=== PATIENT | male | born 1965 | race Caucasian/White ===

== ENCOUNTER 2017-07-27 09:43 | Emergency (ER) | payer BC ==
[~2017-07-27] VITALS: Ht 175.3 cm; Wt 72.6 kg
[2017-07-27 09:45] VITALS: BP 122/88
== END 2017-07-27 10:00 | disposition home or self-care (01) ==
LOC: ER 09:45
DX: S01.111D Laceration without foreign body of right eyelid and periocular area, subsequent encounter (principal); X58.XXXD Exposure to other specified factors, subsequent encounter
CPT/HCPCS: A4606; Z7502; Z7610